=== PATIENT | female | born 2000 | race Caucasian/White ===

== ENCOUNTER 2022-06-12 18:53 | Inpatient (IN) ==
[~2022-06-12 18:53] MED LIST: CeFAZolin 2,000 MG/120 ML BAG IVPB ONE; Famotidine 20 MG/2 ML VIAL IVP ONE; Famotidine 20 MG/2 ML VIAL ONE; Metoclopramide 10 MG/2 ML VIAL IVP ONE; OXYTOCIN/RINGERS LACTATE 10 UNIT/166.6 ML BAG IVC ONE; Oxytocin 30 UNIT/503 ML BAG IVC ONE; Ringers Solution, Lactated 1,000 ML IVC ONE
[2022-06-12] MEDS ORDERED: Oxytocin 30 UNIT/503 ML BAG IVC SCH (19:00)
[2022-06-12 19:05] LABS: Basophils % 0.3 %; Eosinophils # 0.1 K/mcL (0.0-0.6); Eosinophils % 0.9 %; Hematocrit 38.1 % (35.3-44.9); Hemoglobin 13.2 g/dL (11.5-15.4); Immature Granulocytes % 0.5 % (0-4); Lymphocytes # 1.6 K/mcL (0.6-4.6); Lymphocytes % 20.7 %; Mean Corpuscular HGB Conc 34.6 g/dL (31.6-35.5); Mean Corpuscular Hemoglobin 31.4 pg (28.0-33.3); Mean Corpuscular Volume 90.7 fL (83.0-100.0); Mean Platelet Volume 10.8 fL (9.4-12.4); Monocytes # 0.5 K/mcL (0.0-1.3); Monocytes % 6.3 %; Neutrophils # 5.5 K/mcL (1.6-8.9); Platelet Count 189 K/mcL (140-400); Red Cell Distribution Width 12.1 % (11.5-14.5); Segmented Neutrophils % 71.3 %; White Blood Count 7.7 K/mcL (4.3-11.1)
[2022-06-12] MEDS ORDERED: Ondansetron 4 MG/2 ML VIAL ONE (19:06)
[2022-06-12] MEDS ORDERED: Acetaminophen IV 1,000 MG/100 ML BAG IVPB ONE (19:11)
[2022-06-12] MEDS ORDERED: Ketorolac 30 MG/ML VIAL ONE (19:12)
[2022-06-12] MEDS ORDERED: Ringers Solution, Lactated 1,000 ML ONE (19:25)
[2022-06-12] MEDS ORDERED: *HR* Succinylcholine 200 MG/10 ML VIAL IVP ONE (19:25)
[2022-06-12] MEDS ORDERED: Ondansetron 4 MG/2 ML VIAL IVP PRN ×2 (20:17→23:14)
[2022-06-12] MEDS ORDERED: Promethazine 6.25 MG in Water for inj. (sterile) 20 ML IVPB PRN (20:17)
[2022-06-12] MEDS ORDERED: *HR* HYDROmorphone PF 0.5 MG/0.5 ML SYRINGE IVP PRN (20:17)
[2022-06-12] MEDS ORDERED: Permethrin Cream Rinse 60 ML LIQUID TP ONE ×2 (20:30→23:14)
[2022-06-12 20:43] LABS: Amphetamine Screen,Urine Negative ng/mL (Cutoff=1000); Barbiturate Screen,Urine Negative ng/mL (Cutoff=200); Benzodiazepines Screen,Urine Negative ng/mL (Cutoff=200); Cannabinoid Screen,Urine Negative ng/mL (Cutoff = 50); Cocaine Screen,Urine Negative ng/mL (Cutoff= 300); Opiate Screen,Urine Negative ng/mL (Cutoff=300); Phencyclidine Screen,Urine Negative ng/mL (Cutoff=25)
[2022-06-12] MEDS ORDERED: metroNIDAZOLE 500 MG TABLET PO SCH (21:00)
[2022-06-12] MEDS ORDERED: cephALEXin 500 MG CAPSULE PO SCH (21:00)
[2022-06-12] MEDS ORDERED: Simethicone 80 MG TAB.CHEW PO PRN (23:14)
[2022-06-12] MEDS ORDERED: Rho Immune Globulin 1,500 UNIT SYRINGE IM ONE (23:14)
[2022-06-12] MEDS ORDERED: Naloxone 0.4 MG/ML INJ IVP PRN (23:14)
[2022-06-12] MEDS ORDERED: *HR* OxyCODONE Immed Rel 5 MG TABLET PO PRN (23:14)
[2022-06-12] MEDS ORDERED: 0.9 % Sodium Chloride 1,000 ML IVC SCH (23:14)
[2022-06-12] MEDS ORDERED: Metoclopramide 10 MG/2 ML VIAL IVP PRN (23:14)
[2022-06-13] MEDS: Ibuprofen 600 MG TABLET PO SCH ×2 (01:10→08:20)
[2022-06-13] MEDS: Acetaminophen 325 MG TABLET PO SCH ×2 (01:10→08:20)
[2022-06-13 01:39] LABS: Basophils % 0.1 %; Eosinophils % 0.1 %; Hematocrit 32.6 % (35.3-44.9); Immature Granulocytes % 0.4 % (0-4); Lymphocytes # 1.1 K/mcL (0.6-4.6); Lymphocytes % 12.7 %; Mean Corpuscular Hemoglobin 31.8 pg (28.0-33.3); Mean Corpuscular Volume 91.1 fL (83.0-100.0); Mean Platelet Volume 10.9 fL (9.4-12.4); Monocytes # 0.5 K/mcL (0.0-1.3); Monocytes % 6.2 %; Neutrophils # 6.8 K/mcL (1.6-8.9); Platelet Count 172 K/mcL (140-400); Red Blood Count 3.58 M/mcL (3.82-4.97); Segmented Neutrophils % 80.5 %; White Blood Count 8.4 K/mcL (4.3-11.1)
[2022-06-13 01:40] LABS: Hemoglobin 11.4 g/dL (11.5-15.4)
[2022-06-13 02:23] LABS: Varicella Zoster IgG Antibody Positive
[2022-06-13 04:30] LABS: Hepatitis B Surface Antigen Nonreactive (Nonreactive)
[2022-06-13 04:59] LABS: HIV-1&2 Antibody & p24 Ag Nonreactive (Nonreactive)
[2022-06-13] MEDS ORDERED: Prenatal Vit/FA 1 EACH TABLET PO SCH (09:00)
[2022-06-13] MEDS ORDERED: cephALEXin 500 MG CAPSULE PO SCH (09:00)
[2022-06-13] MEDS ORDERED: metroNIDAZOLE 500 MG TABLET PO SCH (09:00)
== END 2022-06-13 11:31 | disposition home or self-care (01) | DRG 786 ==
LOC: 1NENULAB → 1NENUOBS 22:59
PROVIDERS: ADMIT Obstetrics & Gynecology; ATTEND Obstetrics & Gynecology